=== PATIENT | male | born 2000 | race Caucasian/White ===

== ENCOUNTER 2022-07-11 16:24 | Emergency (ER) | payer OTHER | END 2022-07-11 17:40 | disposition home or self-care (01) | LOC: CSHERS 16:24 | DX: F41.0 Panic disorder [episodic paroxysmal anxiety] (principal); R07.9 Chest pain, unspecified | CPT/HCPCS: 93005 ==

== ENCOUNTER 2022-10-17 01:34 | Emergency (ER) | payer OTHER ==
[2022-10-17] MEDS ORDERED: hydrOXYzine 25 MG TAB ONE (03:03)
== END 2022-10-17 03:05 | disposition home or self-care (01) ==
LOC: CSHERS 01:34
DX: R00.0 Tachycardia, unspecified (principal); F43.0 Acute stress reaction; F17.210 Nicotine dependence, cigarettes, uncomplicated
CPT/HCPCS: 93005